=== PATIENT | male | born 1995 | race Caucasian/White ===

== ENCOUNTER 2017-07-12 17:23 | Emergency (ER) | payer SELFPAY ==
[~2017-07-12] VITALS: Ht 182.9 cm; Wt 86.2 kg
--- NOTE | 2017-07-12 17:48 | Emergency Room Report ---
History of Present Illness General Chief Complaint: Medication Refill Source: Patient Present Illness HPI 21-year-old male presents to the emergency department complaining of bleeding his medication for [place]'s disease at home. Patient states [place] Patient reports taking 0.1 mg of fludrocortisone daily or management of his symptoms x10 years. Patient denies dizziness, syncope, lightheadedness. Patient denies frequency of urination or increased thirst. Denies fevers, chills nausea, vomiting or abdominal pain. Allergies: Coded Allergies: GRASS POLLEN (Verified Allergy, Unknown, 07/12/17) Patient History Past Medical History: see triage record, other - sara's disease Past Surgical History: none Pertinent Family History: none Reviewed Nursing Documentation: PMH: Agreed, PSxH: Agreed Review of Systems All Other Systems: negative except mentioned in HPI Physical Exam Vital Signs Date Time Temp Pulse Resp B/P (MAP) Pulse Ox O2 Delivery O2 Flow Rate FiO2 07/12/17 17:31 98.8 70 16 118/68 98 Room Air Sp02 EP Interpretation: reviewed, normal General Appearance: no apparent distress, alert, GCS 15, non-toxic Head: normocephalic, atraumatic ENT: hearing grossly normal, normal voice Neck: full range of motion Respiratory: lungs clear, normal breath sounds, speaking full sentences Cardiovascular #1: regular rate, rhythm, normal capillary refill Gastrointestinal: non tender, soft Rectal: deferred Musculoskeletal: back normal, gait/station normal, normal range of motion Neurologic: alert, oriented x3, responsive, motor strength/tone normal, sensory intact, normal gait, speech normal Psychiatric: judgement/insight normal, memory normal, mood/affect normal Skin: normal color, no rash, warm/dry, well hydrated Medical Decision Making PA Attestation Dr. Khan is my supervising Physician whom patient management has been discussed with. Diagnostic Impression: Primary Impression: Encounter for medication refill Additional Impression: [place] disease ER Course Pt. presents to the ED c/o running out of her medication and her soonest appt. with her pcp is december 27. pt takes [ ] Ddx considered but are not limited to: drug seeking, OD, adrenal crisis, hypovolemia just to name a few. Vital signs: are WNL, pt. is afebrile H&PE are most consistent with need for medication refill with no clinical evidence to suggest crisis, or hypovolemia. pt. has normal medical screening exam. ORDERS: none required at this time, the diagnosis is clinical ED INTERVENTIONS: -0.1 mg PO Fludrocortisone -Pt. given list of free/reduced cost clinics for follow up. otherwise given ED return precautions if symptoms appear. d/w pt. that he will receive one dose here and given Rx. as it may take some time to fill since [place] and it is now after hours for many pharmacies. DISCHARGE: At this time pt. is stable for d/c to home. Will provide printed patient care instructions, and any necessary prescriptions. Care plan and follow up instructions have been discussed with the patient prior to discharge. Last Vital Signs Date Time Temp Pulse Resp B/P (MAP) Pulse Ox O2 Delivery O2 Flow Rate FiO2 07/12/17 17:31 98.8 70 16 118/68 98 Room Air Disposition: HOME, SELF-CARE Condition: Stable Scripts Fludrocortisone Acetate (FLUDROCORTISONE ACETATE) 0.1 Mg Tablet 0.1 MG PO DAILY, #20 TAB Prov: Alicia Goel 07/12/17 Patient Instructions: Medicine Refill at the Emergency Department Additional Instructions: Take medications as directed. Follow up with a Primary Care Provider in 3-5 days, even if your symptoms have resolved. --Please review list of primary care clinics, if you do not already have a primary care provider Return sooner to ED if new symptoms occur, or current symptoms become worse. - Please note that this Emergency Department Report was dictated using [employer] associate technology software, occasionally this can lead to erroneous entry secondary to interpretation by the dictation equipment. Alicia Goel Jul 12, 2017 17:48
[2017-07-12] MEDS ORDERED: CORTISONE ACETA25 MG PO (17:52)
[2017-07-12] MEDS ORDERED: FLUDROCORTISON0.1 MG PO ×2 (17:52→17:56)
[2017-07-12 18:08] VITALS: BP 121/79
== END 2017-07-12 18:10 | disposition home or self-care (01) ==
LOC: EMR 17:52
DX: Z76.0 Encounter for issue of repeat prescription (principal); E27.1 Primary adrenocortical insufficiency
CPT/HCPCS: 99282